=== PATIENT | female | born 1980 ===

== ENCOUNTER 2016-04-20 04:14 | Emergency (ER) | payer SELFPAY ==
[~2016-04-20] VITALS: Ht 157.5 cm; Wt 49.5 kg
[2016-04-20 04:33] VITALS: Ht 157.5 cm; Wt 49.5 kg
--- NOTE | 2016-04-20 04:56 | ERD ---
ER Documentation Chief Complaint Date/Time DATE: 04/20/16 TIME: 04:55 Chief Complaint states needs hydration/feeling tired and weak HPI Patient is a 35-year-old female who was brought in by rescue ambulance. She is a poor historian and states that she wants hydration. She states that she fell she hit her head. She did not lose consciousness but states she has a headache and right-sided neck pain. She denies any vomiting. Denies any chest pain or shortness of breath. Denies any alcohol or drug use. ROS All systems reviewed and are negative except as per history of present illness. Medications Home Meds Active Scripts Ibuprofen* (Motrin*) 600 Mg Tab, 600 MG PO Q6H Y for PAIN AND OR ELEVATED TEMP, #30 TAB Prov:REGINO GARNICA PA-C 04/20/16 PMhx/Soc Medical and Surgical Hx: pt denies Surgical Hx History of Surgery: No Anesthesia Reaction: No Hx Neurological Disorder: No Hx Respiratory Disorders: No Hx Cardiac Disorders: No Hx Psychiatric Problems: No Hx Miscellaneous Medical Probl: Yes ("embolism") Hx Alcohol Use: No Hx Substance Use: No Hx Tobacco Use: No Smoking Status: Never smoker FmHx Family History: No diabetes Physical Exam Vitals Vital Signs Date Time Temp Pulse Resp B/P Pulse Ox O2 Delivery O2 Flow Rate FiO2 04/20/16 04:33 98.7 110 20 165/94 100 Physical Exam General: well developed, disheveled, alert, nontoxic, no distress, monitoring ankle bracelet on the left ankle Head: normocephalic, atraumatic Eyes: PERRL, normal conjunctiva Neck: Supple, nontender, no lymphadenopathy, no midline tenderness Ears: no tenderness over mastoids bilaterally, TMs nonerythematous, no exudates in canal Oropharynx: no tonsilar erythema or edema, uvula midline, no exudates, no kissing tonsils, no drooling Respiratory: Clear to auscaultation bilaterally, speaks in full sentences, no use of accesory muscles or labored breathing, no rales, ronchi, or wheezing Cardiovascular: RRR, No murmurs GI: soft, non tender, non distended, negative murphys sign, negative mcburneys point tenderness, no cva tenderness bilaterally, no rebound or guarding Back: no midline tenderness, no step offs or bony abnormalities, sensation to light touch in tact Extremities: moving all extremities normally, normal gait, no edema Skin: Forehead hematoma no active bleeding Neuro: CN 2-12 intact, normal speech, 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 She states she fell and hit her head. Other than that she is a very poor historian and her story is very unclear. When I asked her what year was she said "you are the rooster." Her examination is otherwise normal. She does have a monitoring ankle bracelet on the left ankle. I suspect she has some psychiatric illness however given her presentation I will CT scan her head and neck. I reviewed the case with Dr. Hudson who agrees with the plan. CT scans were negative for any acute traumatic injury. Patient is discharged with Motrin. Recommended this patient follow up with her primary care doctor within 48 hours or return to the emergency room for any worsening of symptoms. However this time I do believe there is suitable for outpatient management. I answered all their questions and they agreed with the plan and were discharged home. Departure Diagnosis: Primary Impression: Head injury Condition: Stable REGINO GARNICA PA-C Apr 20, 2016 04:56
--- NOTE | 2016-04-20 05:20 | RADRPT ---
PROCEDURE: CT BRAIN WITHOUT CONTRAST CLINICAL INDICATION: 35-year-old female with trauma. TECHNIQUE: The study was performed utilizing a [employer] VCT 64-slice CT scanner. Direct axia l sections were obtained from the foramen magnum to the vertex without the use of intravenous contra st material. Sagittal and coronal reformations were obtained. Automated exposure control and iterat diamond reconstruction techniques were utilized for this examination. The study was repeated secondary to motion artifact. The images were viewed on a PACS workstation. CTD/vol = 90.0 mGy; Total Exam DL P = 1440.5 mGy-cm. COMPARISON: None. FINDINGS: There is motion artifact present limiting evaluation to some extent despite repeating the examinatio n. The ventricles have a normal size, shape and position. There is no evidence for mass effect or midline shift. There are no intracranial areas of abnormal attenuation. There is no evidence for a cute intra or extra-axial blood. The bony calvarium is intact. There is right inferior frontal scalp soft tissue swelling. The partially visualized paranasal sinuses and mastoid air cells are without significant abnormal soft tissue. IMPRESSION: 1. Motion artifact limiting the evaluation otherwise the intracranial contents are unremarkable on this noncontrast CT scan of the brain. 2. Right inferior frontal scalp soft tissue swelling. .Terry Bates MD, Date Time Electronically viewed and signed by .Terry Bates MD, MD on 04/20/2016 05:20 .M/
[2016-04-20] MEDS ORDERED: IBUP-1542 PO (05:24)
--- NOTE | 2016-04-20 05:36 | RADRPT ---
PROCEDURE: CT CERVICAL SPINE WITHOUT CONTRAST CLINICAL INDICATION: 35-year-old female with trauma. TECHNIQUE: The study was performed utilizing a [employer] VCT 64-slice CT scanner. Direct axia l sections were obtained through the cervical spine. Coronal and sagittal re-formations were obtain ed. Automated exposure control and iterative reconstruction techniques were utilized for this exami nation. The images were viewed on a PACS workstation. CTD/vol = 22.3 mGy; Total Exam DLP = 544.6 mG y-cm. COMPARISON: None. FINDINGS: The patients head/neck is mildly tilted and rotated to the left. There is straightening of the norm al cervical lordosis. Otherwise, the cervical vertebral bodies have normal heights and anatomic ali gnment. There is no evidence for acute cervical spine fracture or subluxation. Mild degenerative ch anges are seen within the atlantoaxial junction region. At C2-3 the disk space has a normal appearance. There is no significant central or foraminal stenos is. At C3-4 there are mild bilateral uncovertebral degenerative changes without significant central or f oraminal stenosis. At C4-5 there are mild bilateral uncovertebral degenerative changes without significant central or f oraminal stenosis. At C5-6 there is mild posterior disk-osteophyte complex projecting 3 mm beyond the posterior margin. There are mild bilateral uncovertebral degenerative changes resulting in mild left foraminal steno sis. At C6-7 there is posterior disk-osteophyte complex projecting approximately 4 mm beyond the posterio r margin. There are bilateral uncovertebral degenerative changes resulting in moderate right and mi ld left foraminal stenosis. At C7-T1 the disk space has a normal appearance. There is no significant central or foraminal steno sis. IMPRESSION: 1. Straightening of the normal cervical lordosis. 2. No CT evidence for acute cervical spine fracture. 3. Cervical spondylosis most prominently at C6-7. .Terry Bates MD, Date Time Electronically viewed and signed by .Terry Bates MD, MD on 04/20/2016 05:36 .M/
[2016-04-20] MEDS ORDERED: BUPR300T48 PO (07:35)
[2016-04-20] MEDS ORDERED: WARF5TAB72 PO (07:36)
[2016-04-20] MEDS ORDERED: WARF7.5T PO (07:37)
--- NOTE | 2016-04-20 09:01 | PSY ---
Date/Time of Note Date/Time of Note DATE: 04/20/16 TIME: 08:56 Psychiatric Subjective Eval Consent Pt consented to telemedicine: Yes Subjective Evaluation Patient location: emergency Chief Complaint: states needs hydration/feeling tired and weak History of present illness 35 yo female presenting to ED with vague complaints, bizarre, disorganized. Pt is wearing tracer anklet. Tangential, speech is disorganized to the point of almost word salad. Laughing and giggling then asked if she has any si or i. Not able to plan for food, long term , clothiing. + ANGÉLICA Blanchard historian. Past psychiatric history apparently has prior inpt, was on seroquel in the past Hospitalization: yes Family History unknown Medical history Problems Medical Problems: (1) Head injury Status: Acute Allergies: Coded Allergies: No Known Allergy (Unverified , 04/20/16) Social History Level of education: unknown Occupation/Residential: homeless Psychiatric Objective Eval Mental Status Examination: Appearance: Bizarre Eye Contact: Good Psychomotor Activity: Normal Behavior: Bizarre Speech: Disorganized AFFECT: Libile Mood: Elevated Though Process: Loose, Tangential Thought Content: Delusions Suicidal: No Homicidal: No Orientation: x2 Cognition: Alert Insight: Impared Judgement: Impared Attention Span: Distractible Assessment and Plan Assessment/Diagnosis [place] I: schizoaffective disorder [place] II: defered [place] III: nad [place] IV: severe [place] V: gaf 25 Recommendation/Plan Medication Management Seroquel 50 mg po bid Psychotherapy defer to inpt Follow-up/Disposition transfer to inpt psych on 5150 for GD - ot able to plan for food, long term, clothing, disorganized. 5150 Recommendation: DARYL Rao MD Apr 20, 2016 09:01
[2016-04-20] MEDS ORDERED: OLANZAPINE (ODT) 5 MG TAB ODT ONE (09:30)
[2016-04-20 10:03] LABS: BASOPHILS % 0.3 % (0.0-2.0); EOSINOPHILS # 0.1 10^3/ul (0.0-0.5); EOSINOPHILS % 0.9 % (0.0-7.0); HEMATOCRIT 39.1 % (37.0-47.0); HEMOGLOBIN 12.9 g/dl (12.0-16.0); LYMPHOCYTES # 1.5 10^3/ul (0.8-2.9); LYMPHOCYTES % 15.2 % (15.0-51.0); MEAN CORPUSCULAR HEMOGLOBIN 30.9 pg (29.0-33.0); MEAN CORPUSCULAR HGB CONC 33.1 g/dl (32.0-37.0); MEAN CORPUSCULAR VOLUME 93.5 fl (82.0-101.0); MONOCYTE # 0.4 10^3/ul (0.3-0.9); MONOCYTES % 4.2 % (0.0-11.0); NEUTROPHIL # 7.7 10^3/ul (1.6-7.5); NEUTROPHILS % 79.4 % (39.0-77.0); PLATELET COUNT 482 10^3/UL (140-440); RED BLOOD COUNT 4.18 10^6/ul (4.20-5.40); RED CELL DISTRIBUTION WIDTH 13.3 % (11.5-14.5); UNCORRECTED WBC 9.7 10^3/ul (4.8-10.8); WHITE BLOOD COUNT 9.7 10^3/ul (4.8-10.8)
[2016-04-20 10:14] LABS: ALBUMIN 4.4 g/dl (3.3-4.9); CHLORIDE 102 mmol/L (97-110); POTASSIUM 4.1 mmol/L (3.5-5.1); SODIUM 142 mmol/L (135-144)
[2016-04-20 10:16] LABS: BILIRUBIN,INDIRECT 0.3 mg/dl (0-1.1); BILIRUBIN,TOTAL 0.3 mg/dl (0.2-1.3)
[2016-04-20 10:17] LABS: ALANINE AMINOTRANSFERASE 49 IU/L (13-69); ALBUMIN/GLOBULIN RATIO 1.46; ALKALINE PHOSPHATASE 59 IU/L (42-121); ANION GAP 14 (8-16); ASPARTATE AMINO TRANSFERASE 33 IU/L (15-46); BLOOD UREA NITROGEN 17 mg/dl (7-20); CALCIUM 9.2 mg/dl (8.4-10.2); CARBON DIOXIDE 30 mmol/L (21-31); GLUCOSE 114 mg/dl (70-220); TOTAL PROTEIN 7.4 g/dl (6.1-8.1)
[2016-04-20 10:20] LABS: CONDITION 1
[2016-04-20 10:27] LABS: ACETAMINOPHEN < 10.0 ug/ml (10.0-30.0); ETHANOL < 10.0 mg/dl; SALICYLATE < 1.0 mg/dl (5.0-30.0)
--- NOTE | 2016-04-20 11:44 | QN ---
Documentation Comment Observation Note: Time: 4 hours Family Hx: Negative for diabetes Evaluation: Multiple exams showed improving symptoms and no evidence of clinical decompensation. Dr. Hannah from psychiatry has evaluated the patient and feels the patient requires 5150 hold for grave disability. Laboratory studies are done and she is now medically cleared. Urine drug screen is pending. The patient was given Zyprexa. BELKYS GUERRA MD Apr 20, 2016 11:44
[2016-04-20] MEDS ORDERED: QUETIAPINE 100 MG TAB PO ONE (12:00)
[2016-04-20 12:04] LABS: ADD UMIC NO; URINE BILIRUBIN (Dip) NEGATIVE (NEGATIVE); URINE BLOOD (Dip) NEGATIVE (NEGATIVE); URINE COLOR LT. YELLOW (YELLOW); URINE GLUCOSE (Dip) NEGATIVE (NEGATIVE); URINE KETONES (Dip) NEGATIVE (NEGATIVE); URINE LEUKOCYTE ESTERASE (Dip) NEGATIVE (NEGATIVE); URINE NITRITE (Dip) NEGATIVE (NEGATIVE); URINE TOTAL PROTEIN (Dip) NEGATIVE (NEGATIVE); URINE UROBILINOGEN (Dip) 0.2 E.U./dL (0.1-1.0)
[2016-04-20 12:46] LABS: BARBITURATES Negative (NEGATIVE); BENZODIAZEPINES Negative (NEGATIVE); CANNABINOIDS Negative (NEGATIVE); COCAINE Negative (NEGATIVE); OPIATES Negative (NEGATIVE)
[2016-04-21] MEDS ORDERED: ACETAMINOPHEN 500 MG TAB PO STA (01:00)
[2016-04-21 14:59] LABS: INR 1.2; PROTIME 15.3 Sec (12.2-14.2); PT RATIO 1.2
--- NOTE | 2016-04-21 16:28 | PSY ---
Date/Time of Note Date/Time of Note DATE: 04/21/16 TIME: 16:22 Psychiatric Subjective Eval Consent Pt consented to telemedicine: Yes Subjective Evaluation Patient location: emergency Chief Complaint: states needs hydration/feeling tired and weak Reason for consult: re-eval History of present illness Dr Victor requested re-eval - 35 yo homeless female with hx amphetamine use disorder, whe was seen by this typewriters functional tester yesterday in ED. At that time she was disorganzied and euphoric, 5150 was recommended. Today she is organized, calm. She says, she wants a letter from a psychiatrist to got to deparment of social service manager [place]onda she will "get benefits on the spot". Pt reveals hx multiple failed rug rehabs, prior inpt psych then intoxicated on meth. She denies si or hi, denies ah or vh, denies paranoia. She says, she wants to get benefits and housing. Past psychiatric history prior inpt while intoxicated on meth Hospitalization: no Medical history Problems Medical Problems: (1) Amphetamine abuse Status: Acute (2) Grave disability Status: Acute (3) Head injury Status: Acute Allergies: Coded Allergies: No Known Allergy (Unverified , 04/20/16) Substance Abuse Substance abuse history: Yes Prior substance abuse treatmen: Yes Social History Marital status: single Level of education: unknown DPA/Conservatorship: No Occupation/Skilled Nursing: homeless Psychiatric Objective Eval Mental Status Examination: Appearance: Disheveled Eye Contact: Good Psychomotor Activity: Normal Behavior: Cooperative Speech: Clear AFFECT: Appropriate Mood: Appropriate/Full Though Process: Linear Thought Content: Normal Suicidal: No Homicidal: No On 72 hour hold: No Orientation: x4 Cognition: Alert Insight: Impared Judgement: Impared Laboratory Results Laboratory Tests Test 04/20/16 09:54 04/20/16 11:19 04/21/16 14:35 Acetaminophen Level < 10.0ug/ml Alanine Aminotransferase (ALT/SGPT) 49IU/L Albumin 4.4g/dl Albumin/Globulin Ratio 1.46 Alkaline Phosphatase 59IU/L Anion Gap 14 Aspartate Amino Transf (AST/SGOT) 33IU/L Basophils # 0.010^3/ul Basophils % 0.3% Blood Morphology Comment Blood Urea Nitrogen 17mg/dl Calcium Level 9.2mg/dl Carbon Dioxide Level 30mmol/L Chloride Level 102mmol/L Creatinine 0.70mg/dl Direct Bilirubin 0.00mg/dl Eosinophils # 0.110^3/ul Eosinophils % 0.9% Ethyl Alcohol Level < 10.0mg/dl Globulin 3.00g/dl Glucose Level 114mg/dl Hematocrit 39.1% Hemoglobin 12.9g/dl Indirect Bilirubin 0.3mg/dl Lymphocytes # 1.510^3/ul Lymphocytes % 15.2% Mean Corpuscular Hemoglobin 30.9pg Mean Corpuscular Hemoglobin Concent 33.1g/dl Mean Corpuscular Volume 93.5fl Mean Platelet Volume 7.0fl Monocytes # 0.410^3/ul Monocytes % 4.2% Neutrophils # 7.710^3/ul Neutrophils % 79.4% Nucleated Red Blood Cells # 0.010^3/ul Nucleated Red Blood Cells % 0.0/100WBC Platelet Count 93027^3/UL Potassium Level 4.1mmol/L Red Blood Count 4.1810^6/ul Red Cell Distribution Width 13.3% Salicylates Level < 1.0mg/dl Sodium Level 142mmol/L Total Bilirubin 0.3mg/dl Total Protein 7.4g/dl White Blood Count 9.710^3/ul Urine Amphetamines Screen POSITIVE Urine Barbiturates Negative Urine Benzodiazepines Screen Negative Urine Bilirubin NEGATIVE Urine Cannabinoids Negative Urine Clarity CLEAR Urine Cocaine Screen Negative Urine Color LT. YELLOW Urine Glucose NEGATIVE% Urine Hemoglobin NEGATIVE Urine Ketones NEGATIVE Urine Leukocyte Esterase NEGATIVE Urine Nitrite NEGATIVE Urine Opiates Screen Negative Urine Specific [place] 1.010 Urine Total Protein NEGATIVE Urine Urobilinogen 0.2 E.U./dL Urine pH 6.0 Activated Partial Thromboplast Time 30.0Sec INR International Normalized Ratio 1.20 Prothrombin Time 15.3Sec Prothrombin Time Ratio 1.2 Assessment and Plan Assessment/Diagnosis [place] I: AMPHETAMINE INTOXICATION, RESOLVED; AMPHETAMINEUSE DISORDER [place] II: DEFERED [place] III: NAD [place] IV: SEVERE [place] V: GAF 45 Recommendation/Plan Medication Management PLEASE REFER TO OUTPT MENTAL HEALTH Psychotherapy NA MEETINGS Follow-up/Disposition NO DTS, DTO, GD; PLEASE RFER TO OUTPT MENTAL HEALTH AND CD REHAB. 5150 Recommendation: Release Hold DARYL GASCA MD Apr 21, 2016 16:28
--- NOTE | 2016-04-21 17:15 | EN ---
Date/Time of Note Date/Time of Note DATE: 04/21/16 TIME: 17:14 ER Progress Note Observation Note: Time: 4 hours Family Hx: No Hypertension Evaluation: Multiple exams showed improving symptoms and no evidence of psychiatric deterioration The patient was evaluated by psychiatry Dr Hannah who recommended discharging the patient I discussed the findings with the patient. I advised the patient to follow-up with her psychiatrist in about 1-2 days, sooner if needed and return if any concern. ISAAC FISHER MD Apr 21, 2016 17:15
[2016-04-21 17:47] VITALS: BP 112/70; PULSE 82; RESP 16; TEMP 98.5
== END 2016-04-21 17:53 | disposition home or self-care (01) ==
LOC: FTE 04:14 → E/R 04-21 17:53
DX: S00.83XA Contusion of other part of head, initial encounter (principal); R40.2142 Coma scale, eyes open, spontaneous, at arrival to emergency department; R40.2252 Coma scale, best verbal response, oriented, at arrival to emergency department; R40.2362 Coma scale, best motor response, obeys commands, at arrival to emergency department; W01.10XA Fall on same level from slipping, tripping and stumbling with subsequent striking against unspecified object, initial encounter; Y92.9 Unspecified place or not applicable
CPT/HCPCS: 70450; 72125; 80053; 80306; 80307; 81003; 85025; 85610; 85730